=== PATIENT | female | born 1985 | race African-American/Black ===

== ENCOUNTER 2019-01-10 10:19 | Inpatient (IN) | payer BC, OTHER ==
[2019-01-10 10:55] LABS: APPEARANCE,URINE CLEAR; BILIRUBIN,URINE NEGATIVE (NEGATIVE); COLOR,URINE YELLOW; GLUCOSE, URINE NEGATIVE (NEGATIVE); KETONES,URINE NEGATIVE (NEGATIVE); LEUKOCYTE ESTERASE,URINE LARGE (NEGATIVE); NITRITE,URINE NEGATIVE (NEGATIVE); PROTEIN,URINE NEGATIVE (NEGATIVE); URINE SPECIFIC GRAVITY 1.005; UROBILINOGEN,URINE NEGATIVE mg/dL (<2.0)
[2019-01-10 11:25] LABS: URINE AMPHETAMINES SCREEN NEGATIVE; URINE BARBITURATES SCREEN NEGATIVE; URINE BENZODIAZEPINES SCREEN NEGATIVE; URINE COCAINE SCREEN NEGATIVE; URINE MARIJUANA (THC) SCREEN NEGATIVE; URINE METHADONE SCREEN NEGATIVE; URINE PHENCYCLIDINE SCREEN NEGATIVE
[2019-01-10] MEDS: RINGERS SOLUTION,LACTATED 1,000 ML IV PRN ×2 (12:18→17:37)
--- NOTE | 2019-01-10 15:42 | RADIOLOGY REPORT (SQ) ---
EXAM DESCRIPTION: U/S PROFILE W/O STRESS COMPLETED DATE/TIME: 01/10/2019 3:03 pm REASON FOR STUDY: BPP COMPARISON: None. TECHNIQUE: Limited pace-scale realtime and static images of the fetus to measure specified parameter s. LIMITATIONS: None. FINDINGS: HEART RATE: 133 beats per minute. RADHA: 7.5 cm. BREATHING MOVEMENT: 2 points. MOVEMENT: 2 points. POSTURE AND TONE: 2 points. QUALITATIVE RADHA: 2 points. OTHER: Vertex position. IMPRESSION: BIOPHYSICAL PROFILE: 12/27. Trimester of : Third - 28 weeks to delivery COMMENT: BREATHING MOVEMENTS: 2 POINTS: PRESENT 0 POINTS: ABSENT MOTION: 2 POINTS: PRESENT 0 POINTS: ABSENT TONE: 2 POINTS: PRESENT 0 POINTS: ABSENT AMNIOTIC FLUID VOLUME: 2 POINTS: LARGEST POCKET GREATER THAN 2 CM DEPTH. 0 POINTS: NO POCKET OF 2 CM. TECHNICAL DOCUMENTATION: JOB ID: [id number] 2010 [employer]- All Rights Reserved Reading location - IP/workstation name: [email or web address]
[2019-01-10] MEDS ORDERED: OXYTOCIN/NORMAL SALINE 20 UNIT/1,000 ML RTUINJ IV PRN (16:27)
[2019-01-10] MEDS ORDERED: RINGERS SOLUTION,LACTATED 300 ML IV ONE (16:27)
--- NOTE | 2019-01-10 16:27 | Admission Physical ---
Datetime Report Generated by CPN: 01/10/2019 16:27 CURRENT ADMISSION Indication for Induction: Postterm Indication for Induction- Other: NR NST Admit Impression : Term, Intrauterine Admit Plan: Admit to Unit; Initiate Labor Induction Protocol ALLERGIES Medication Allergies: Yes Medication Allergies: Penicillins/SV (01/10/2019) Latex: Latex Allergies Food Allergies: NONE Environmental Allergies: NONE OBSTETRICAL HISTORY EDC: 01/08/2019 00:00 : 2 Para: 0 Term: 0 : 0 SAB: 1 IAB: 0 Ectopic: 0 Livin Cesareans: 0 VBACs: 0 Multiple Births: 0 Gestational Diabetes: No Rh Sensitization: No Incompetent Cervix: No SOLE: No Infertility: No ART Treatment: No Uterine Anomaly: No IUGR: No Hx Previous C/S: No Macrosomia: No Hx Loss/Stillborn: No PIH: No Hx : No Placenta Previa/Abruption: No Depression/PP Depression: No PTL/PROM: No Post Hemorrhage: No Current Procedures: Ultrasound; NST Obstetrical History Comments: G1- SAB G2- CURRENT SEE RECORDS Alcohol: No Marijuana : No Cocaine: No Other Illicit Drugs: No Cigarettes: Never Smoker. [id number] MEDICAL HISTORY Diabetes: No Blood Transfusion: No Pulmonary Disease (Asthma, TB): Yes Breast Disease: No Hypertension: No Laboratory Engineer Surgery: No Heart Disease: No Hosp/Surgery: No Autoimmune Disorder: No Anesthetic Complications: No Kidney Disease: No Abnormal Pap Smear: No Neuro/Epilepsy: No Psychiatric Disorders: No Other Medical Diseases: Yes Hepatitis/Liver Disease: No Significant Family History: No Varicosities/Phlebitis: No Trauma/Violence : No Thyroid Dysfunction: No Medical History Comments: ASTHMA, GERD INFECTIOUS HISTORY Gonorrhea: No Genital Herpes: No Chlamydia: No Tuberculosis: No Syphilis: No Hepatitis: No HIV/AIDS Exposure: No Rash or Viral Illness: No HPV: No PHYSICAL EXAM General: Normal HEENT: Normal Neurologic: Normal Thyroid: Normal Heart: Normal Lungs: Normal Breast: Normal Back: Normal Abdomen: Normal Genitourinary Exam: Normal Extremities: Normal DTRs: Normal Pelvic Type: Adequate MEMBRANES Membranes: Intact FETUS A Monitoring: External US FHR- Baseline: 140 Variability: Moderate 6-25bpm Accelerations: 10X10 Decelerations: None Admit Comment: at 40.2 wks, GBS negative, sent over from the office earlier today for r/o SROM and RADHA 4.0 noted on u/s at [facility] office. Negative Actiprom swab here on labor and delivery. IV Hydration given. Rpt RADHA is 7.5cm after fluids infused. BPP 8/10 with NR NST, and pt no perceiving normal baby movements her on L_D. Discussed w/ Dr Heard and will keep pt for Cervidil IOL overnight due to NR NST at 40.2 wks. PLANS FOR LABOR AND DELIVERY Labor and Delivery: None Pain Management: Epidural Feeding Preference: Breast Benefit of Breast Feed Discussed: Yes Circumcision: No INFORMED CONSENT Assignment: Woody Heard MD Signature: with User ID: [email or web address] : with User ID: [email or web address]
[2019-01-10] MEDS ORDERED: ONDANSETRON HCL INJ/PF 4 MG/2 ML SDV IV ONE (17:11)
[2019-01-10 17:14] LABS: ABSOLUTE EOSINOPHILS # (AUTO) 0.1 10^3/uL (0.0-0.6); ABSOLUTE MONOCYTES (AUTO) 0.8 10^3/uL (0.1-1.4); ABSOLUTE NEUT (AUTO) 10.2 10^3/uL (1.7-8.2); BASOPHILS % (AUTO) 0.3 % (0-2); EOSINOPHILS % (AUTO) 0.5 % (0-6); HEMATOCRIT 34.9 % (36.0-47.0); HEMOGLOBIN 11.5 g/dL (12.0-15.5); LYMPHOCYTES % (AUTO) 15.2 % (13-45); MEAN CORPUSCULAR HEMOGLOBIN 29.8 pg (27.0-33.4); MEAN CORPUSCULAR HGB CONC 32.8 g/dL (32.0-36.0); MEAN CORPUSCULAR VOLUME 91 fl (80-97); PLATELET COUNT 225 10^3/uL (150-450); RED BLOOD COUNT 3.85 10^6/uL (3.72-5.28); RED CELL DISTRIBUTION WIDTH 12.6 % (11.5-14.0); TOTAL CELLS COUNTED % (AUTO) 100 %
[2019-01-10] MEDS ORDERED: ONDANSETRON HCL INJ/PF 4 MG/2 ML SDV ONE (17:25)
[2019-01-10] MEDS ORDERED: DINOPROSTONE 10 MG VAGINAL INSERT.SR ONE (18:48)
[2019-01-10] MEDS ORDERED: DINOPROSTONE 10 MG VAGINAL INSERT.SR PV PRN (19:00)
[2019-01-10] MEDS ORDERED: ACETAMINOPHEN 325 MG TABLET PO PRN (21:19)
[2019-01-10] MEDS ORDERED: ZOLPIDEM TARTRATE 5 MG TABLET PO PRN (21:19)
[2019-01-10] MEDS ORDERED: MAG HYDROX/AL HYDROX/SIMETH SUSP 30 ML UDCUP PO PRN (21:19)
[2019-01-10] MEDS ORDERED: ZOLPIDEM TARTRATE 5 MG TABLET ONE (21:22)
[2019-01-10] MEDS ORDERED: ACETAMINOPHEN 325 MG TABLET ONE (21:22)
[2019-01-10] MEDS ORDERED: BUTALB/ACETAMINOPHEN/CAFFEINE 1 TAB EACH PO PRN (23:16)
[2019-01-10] MEDS ORDERED: BUTALB/ACETAMINOPHEN/CAFFEINE 1 TAB EACH ONE (23:18)
[2019-01-11] MEDS: RINGERS SOLUTION,LACTATED 1,000 ML IV PRN ×2 (07:03→09:29)
[2019-01-11] MEDS ORDERED: OXYTOCIN 10 UNIT/ML VIAL ONE (09:12)
[2019-01-11] MEDS ORDERED: LIDOCAINE 1% INJ-PF (10 MG/ML) 30 ML SDV ONE (09:12)
[2019-01-11] MEDS ORDERED: MISOPROSTOL 0.2 MG TABLET ONE (09:12)
[2019-01-11] MEDS ORDERED: OXYTOCIN/NORMAL SALINE 20 UNIT/1,000 ML RTUINJ ONE (09:12)
[2019-01-11] MEDS ORDERED: EPHEDRINE SULFATE INJ 50 MG/1 ML AMPULE ONE (10:41)
[2019-01-11] MEDS ORDERED: FENTANYL/BUPIVACAINE/NS/PF 300 MCG/150 ML RTUINJ EPI ONE (10:42)
[2019-01-11] MEDS ORDERED: BUPIVACAINE HCL 0.25 % INJ/PF (2.5 MG/1 ML) 30 ML VIAL ONE (10:42)
--- NOTE | 2019-01-11 13:37 | Delivery Summary ---
Del Sum A-C Datetime Report Generated by CPN: 01/11/2019 13:36 DELIVERY PERSONNEL DELIVERY PERSONNEL: [id number] Delivery Doctor:: Leticia Curtis CNM Labor and Delivery Nurse:: Kaity Newsome RNassistant auto center manager Nurse:: Leah Sauer RNC Nursery Nurse:: Lexie Jose RN Paper Products Machine Operator/FIELD SUPERVISOR: Joselyn Johnson, ST MATERNAL INFORMATION Delivery Anesthesia: Epidural Medications After Delivery: Pitocin Bolus-Please Comment Meds After Delivery Comment: Pitocin 20 Units/1000ml NSS Delivery QBL: 125 Maternal Complications: Precipitous Labor (<3hrs) Provider Comments: Pt progressed rapidly after AROM at 0934, pitocin 2 mu used briefly but was turned off d/t variable decels. Pt got an epidural and then was ready to push. FHTs to 60s and 70s intermittently while pushing, Dr. Harp at bedside for delivery. Infant delivery spontaneously OA and then rotated slightly to OA, delivered shoulders and body easily. vigorous, wiped clean and placed on maternal abd, terminal meconium noted. Apgars 9,9. Spont placenta via baca, bleeding stabilized with QBL 125. Mother and stable. LABOR SUMMARY EDC: 01/08/2019 00:00 No. Babies in Womb: 1 Attempted: No Labor Anesthesia: Epidural LABOR INFORMATION Reason for Induction: Other Reason for Induction- Other: Non-reactive NST Onset of Labor: 01/11/2019 09:34 Complete Dilatation: 01/11/2019 11:28 Cervical Ripening Agents: Cervidil Oxytocin: Augmentation Group B Beta Strep: NEGATIVE Antibiotics # of Doses: 0 Steroids Given: None Reason Steroids Not Administered: Not Applicable MEMBRANES Membranes Rupture Method: Artificial Rupture of Membranes: 01/09/2019 20:00 Length of Rupture (hr): 39.72 Amniotic Fluid Color: Clear Amniotic Fluid Amount: Scant Amniotic Fluid Odor: Normal STAGES OF LABOR Stage 1 hr: 1 Stage 1 min: 54 Stage 2 hr: 0 Stage 2 min: 15 Stage 3 hr: 0 Stage 3 min: 5 Total Time in Labor hr: 2 Total Time in Labor min: 14 VAGINAL DELIVERY Episiotomy: None Laceration #1: Periurethral Laceration Extension #1: First Degree Laceration #2: Periurethral Laceration Extension #2: First Degree Laceration Repair: Yes Laceration Repair Note: 1 interrupted stitch with 3.0 chromic suture to Lt side periurethral Sponge Count Correct: N/A CSECTION DELIVERY Primary Indication: N/A Secondary Indication: N/A CSection Incidence: N/A Labor: N/A Elective: N/A CSection Incision: N/A BABY A INFORMATION Infant Delivery Date/Time: 01/11/2019 11:43 Method of Delivery: Vaginal Born in Route : No : N/A Forceps: N/A Vacuum Extraction: N/A Shoulder Dystocia : No PRESENTATION/POSITION BABY A Presentation: Cephalic Cephalic Presentation: Vertex Vertex Position: Left Occipital Anterior Breech Presentation: N/A PLACENTA INFORMATION BABY A Placenta Delivery Time : 01/11/2019 11:48 Placenta Method of Delivery: Spontaneous Placenta Status: Delivered SCORES BABY A Heart Rate 1 min: >100 bpm Resp Effort 1 min: Good Cry Reflex Irritability 1 min: Cough or Sneeze or Pulls Away Muscle Tone 1 min: Active Motion Color 1 min: Body [place], Extremities Blue Resuscitation Effort 1 min: Tactile Stimulation SCORE 1 MIN: 9 Heart Rate 5 min: >100 bpm Resp Effort 5 min: Good Cry Reflex Irritability 5 min: Cough or Sneeze or Pulls Away Muscle Tone 5 min: Active Motion Color 5 min: Body [place], Extremities Blue Resuscitation Effort 5 min: N/A SCORE 5 MIN: 9 INFORMATION BABY A Gestational Age at Delivery: 40.3 Gestational Status: Full Term- 39- 40.6 Weeks Outcome : Liveborn Infant Condition : Stable Infant Sex: Female IDENTIFICATION BABY A Verification Date/Time: 01/11/2019 12:32 ID Band Number: [id number] Mother's Name Verified: Yes RN Verifying Infant: , RN Additional Verifying Personnel: D.Juan Manuel, US WEIGHT/LENGTH BABY A Infant Birthweight (gm): 2953 Weight (lb): 6 Infant Weight (oz): 8 Length (in): 19.50 Length (cm): 49.53 CORD INFORMATION BABY A No. Cord Vessels: 3 Nuchal Cord : N/A Cord Blood Taken: Yes-For Eval (Mom's Blood Type - or O+) Suction: None ASSESSMENT BABY A Complications: Multiple Variable Decels Physical Findings at Delivery: Within Normal Limits Respirations: Appears Normal Skin to Skin: Yes Supervisor Keymodule Assembly/ALS Called : No Care By: Marianne Jose RN Transferred To: Remains with Mother SIGNATURES Assignment: Suri Loyd Russelle, MD Signature: with User ID: [email or web address] : with User ID: [email or web address] : I was personally available for consultation and serving as supervising physician for the MLP.
[2019-01-11] MEDS ORDERED: OXYTOCIN/NORMAL SALINE 20 UNIT/1,000 ML RTUINJ IV PRN (13:44)
[2019-01-11] MEDS ORDERED: MEASLES,MUMPS&RUBELLA VACC/PF 0.5 ML VIAL SUBCUT PRN (13:44)
[2019-01-11] MEDS ORDERED: BENZOCAINE/MENTHOL AEROSOL SPRAY 56 ML TOP PRN (13:44)
[2019-01-11] MEDS ORDERED: ACETAMINOPHEN WITH CODEINE #3 TABLET PO PRN ×2 (13:44)
[2019-01-11] MEDS ORDERED: DIBUCAINE 1% OINTMENT 56 GM TP PRN (13:44)
[2019-01-11] MEDS ORDERED: ZOLPIDEM TARTRATE 5 MG TABLET PO PRN (13:44)
[2019-01-11] MEDS ORDERED: DIPH/PERTUSS(ACELL)/TETANUS VAC/PF 0.5 ML SYR (>=10YO) IM PRN (13:44)
[2019-01-11] MEDS: IBUPROFEN 800 MG TABLET PO SCH ×2 (14:57→22:41)
[2019-01-11] MEDS: DOCUSATE SODIUM 100 MG CAPSULE PO SCH (18:04)
[2019-01-11] MEDS: FERROUS SULFATE 325 MG TABLET PO SCH (18:04)
[2019-01-12] MEDS: IBUPROFEN 800 MG TABLET PO SCH ×3 (05:14→21:17)
[2019-01-12 07:59] LABS: HEMATOCRIT 30.7 % (36.0-47.0); HEMOGLOBIN 10.3 g/dL (12.0-15.5); MEAN CORPUSCULAR HEMOGLOBIN 30.5 pg (27.0-33.4); MEAN CORPUSCULAR HGB CONC 33.4 g/dL (32.0-36.0); MEAN CORPUSCULAR VOLUME 91 fl (80-97); PLATELET COUNT 192 10^3/uL (150-450); RED BLOOD COUNT 3.37 10^6/uL (3.72-5.28); RED CELL DISTRIBUTION WIDTH 12.9 % (11.5-14.0); WHITE BLOOD COUNT 13.8 10^3/uL (4.0-10.5)
[2019-01-12] MEDS: SENNOSIDES/DOCUSATE 8.6-50 MG 1 EACH TABLET PO SCH (11:34)
[2019-01-12] MEDS: PRENATAL VITAMIN W DHA CAPSULE PO SCH (11:34)
[2019-01-12] MEDS: DOCUSATE SODIUM 100 MG CAPSULE PO SCH ×2 (11:34→18:48)
[2019-01-12] MEDS: FERROUS SULFATE 325 MG TABLET PO SCH ×2 (11:34→18:48)
--- NOTE | 2019-01-12 11:48 | PDOC PROGRESS REPORT ---
Subjective-OB Progress Note for:: 01/12/19 Subjective: Pt doing well, no concerns. She reports light bleeding, reg diet and voiding without difficulty. Physical Exam (OB) Vital Signs: Temp Pulse Resp BP Pulse Ox 98.5 F 97 14 121/83 99 01/12/19 08:19 01/12/19 08:19 01/12/19 08:19 01/12/19 08:19 01/12/19 08:19 Intake & Output 01/11/19 01/12/19 01/13/19 06:59 06:59 06:59 Intake Total 1999 Balance 1999 Weight 93.2 kg - Lochia Lochia Amount: Scant < 10 ml Lochia Color: Rubra/Red - Abdomen Description: Tender, Soft Hernia Present: No Fundal Description: Firm, Midline Fundal Height: u/u - u/2 Objective-Diagnostic Laboratory: 01/12/19 07:18 01/12/19 07:18 WBC 13.8 H RBC 3.37 L Hgb 10.3 L Hct 30.7 L MCV 91 MCH 30.5 MCHC 33.4 RDW 12.9 Plt Count 192 Assessment and Plan(PN) - Assessment and Plan (1) Non-reassuring status, delivered, current hospitalization Is this a current diagnosis for this admission?: Yes (2) (spontaneous vaginal delivery) Is this a current diagnosis for this admission?: Yes - Time Spent with Patient Time with patient: Less than 15 minutes Medications reviewed and adjusted accordingly: Yes - Disposition Anticipated Discharge: Home Within: within 24 hours
[2019-01-13] MEDS: IBUPROFEN 800 MG TABLET PO SCH (06:40)
[2019-01-13] MEDS: DOCUSATE SODIUM 100 MG CAPSULE PO SCH (10:22)
[2019-01-13] MEDS: SENNOSIDES/DOCUSATE 8.6-50 MG 1 EACH TABLET PO SCH (10:23)
[2019-01-13] MEDS: FERROUS SULFATE 325 MG TABLET PO SCH (10:23)
[2019-01-13] MEDS: PRENATAL VITAMIN W DHA CAPSULE PO SCH (10:23)
[2019-01-13 11:36] VITALS: BP 131/78
--- NOTE | 2019-01-13 11:41 | PDOC DISCHARGE SUMMARY ---
Final Diagnosis Discharge Date: 01/13/19 - Final Diagnosis (1) Non-reassuring status, delivered, current hospitalization Is this a current diagnosis for this admission?: Yes (2) (spontaneous vaginal delivery) Is this a current diagnosis for this admission?: Yes Discharge Data - Discharge Medication Home Medications: Esomeprazole Magnesium [Nexium] 40 mg QHS 12/19/14 Vits96/Iron Fum/Folic [ Tablet] 1 each PO DAILY 01/10/19 Reason(s) for Admission: Induction of Labor Procedures: NST Intrapartum Procedure(s): Spontaneous Vaginal Delivery Complication(s): Laceration-Periurethral Laceration-Degree: 1st - Diagnosis Test Laboratory: Temp Pulse Resp BP Pulse Ox 98.5 F 97 14 121/83 99 01/12/19 08:19 01/12/19 08:19 01/12/19 08:19 01/12/19 08:19 01/12/19 08:19 01/10/19 01/10/19 01/12/19 10:30 16:43 07:18 RBC 3.85 3.37 L Hgb 11.5 L 10.3 L Hct 34.9 L 30.7 L Urine Opiates Screen NEGATIVE - Discharge information/Instructions Discharge Activity: Balance Activity w/Rest, Pelvic Rest Discharge Diet: Regular Disposition: HOME, SELF-CARE Follow up with: [facility] in: 4, Weeks
== END 2019-01-13 12:25 | disposition home or self-care (01) | DRG 807 ==
LOC: LC 10:19 → LR 16:05 → 2S 01-11 13:55
PROVIDERS: ADMIT Obstetrics & Gynecology Gynecology; ATTEND Obstetrics & Gynecology Gynecology
PROC: 10907ZC Drainage of Amniotic Fluid, Therapeutic from Products of Conception, Via Natural or Artificial Opening (ICD-10-PCS; 2019-01-10)
PROC: 10E0XZZ Delivery of Products of Conception, External Approach (ICD-10-PCS; principal; 2019-01-11)
PROC: 0UQMXZZ Repair Vulva, External Approach (ICD-10-PCS; 2019-01-11)
PROC: 3E0P7VZ Introduction of Hormone into Female Reproductive, Via Natural or Artificial Opening (ICD-10-PCS; 2019-01-11)
DX: O48.0 Post-term pregnancy (principal); Z37.0 Single live birth; O76 Abnormality in fetal heart rate and rhythm complicating labor and delivery; O62.3 Precipitate labor; O71.82 Other specified trauma to perineum and vulva; Z88.0 Allergy status to penicillin; Z91.040 Latex allergy status; Z3A.40 40 weeks gestation of pregnancy
CPT/HCPCS: 36415; 76819; 80307; 81005; 84112; 85025; 85027; 86592; 86850; 86900; 86901; 94760; C1758; J2405; J2590; J3010; J3490